=== PATIENT | female | born 1980 | race American Indian/Alaskan Native ===

== ENCOUNTER 2016-10-07 17:33 | Emergency (ER) | payer SELFPAY ==
[2016-10-07] MEDS ORDERED: TYLENOL ONE (18:09)
[2016-10-07] MEDS ORDERED: TYLENOL PO ONE (18:12)
--- NOTE | 2016-10-07 19:48 | Emergency Department Report ---
ED ENT HPI - General Chief complaint: Dental/Oral Stated complaint: TOOTHACHE RT SIDE Source: patient Mode of arrival: Ambulatory Limitations: No Limitations - History of Present Illness Initial comments: 36 year old female presents to ED with right sided jaw swelling. patient states she had a "hole in her tooth" a couple days ago and she woke up this morning with right sided jaw swelling and pain. Patient states she also has had fever. patient denies trouble breathing or trauma to jaw/facial area. Patient is stable , neurologically intact and in no acute distress. MD complaint: tooth pain Location: tooth # (bottom right tooth) 1 - pain at right lower tooth Severity: mild Quality: constant Consistency: constant Improves with: none Worsens with: none Context- Dental: history of dental caries, poor dental care Associated Symptoms: fever, toothache. denies: pain with swallowing, sore throat - Related Data Home Medications Medication Instructions Recorded Confirmed Last Taken traMADol [Ultram] 50 mg PO Q6HR PRN 04/17/16 04/17/16 Unknown Previous Rx's Medication Instructions Recorded Last Taken Type Ibuprofen [Motrin] 800 mg PO Q8H PRN #30 tablet 05/11/14 Unknown Rx Cyclobenzaprine [Flexeril] 10 mg PO TID PRN #20 tablet 04/17/16 Unknown Rx Fluconazole [Diflucan TAB] 100 mg PO QDAY PRN #1 tablet 04/17/16 Unknown Rx Ibuprofen [Motrin] 800 mg PO Q8HR PRN #30 tablet 04/17/16 Unknown Rx Sulfamethoxazole/Trimethoprim 1 each PO BID #10 tablet 04/17/16 Unknown Rx [Bactrim DS TAB] Ketorolac [Toradol] 10 mg PO Q6H PRN #20 tablet 10/07/16 Unknown Rx Sulfamethoxazole/Trimethoprim 1 each PO BID #20 tablet 10/07/16 Unknown Rx [Bactrim DS TAB] Allergies Allergy/AdvReac Type Severity Reaction Status Date / Time No Known Allergies Allergy Unverified 10/07/16 18:12 ED Dental HPI - General Chief complaint: Dental/Oral Stated complaint: TOOTHACHE RT SIDE Source: patient Mode of arrival: Ambulatory Limitations: No Limitations - Related Data Home Medications Medication Instructions Recorded Confirmed Last Taken traMADol [Ultram] 50 mg PO Q6HR PRN 04/17/16 04/17/16 Unknown Previous Rx's Medication Instructions Recorded Last Taken Type Ibuprofen [Motrin] 800 mg PO Q8H PRN #30 tablet 05/11/14 Unknown Rx Cyclobenzaprine [Flexeril] 10 mg PO TID PRN #20 tablet 04/17/16 Unknown Rx Fluconazole [Diflucan TAB] 100 mg PO QDAY PRN #1 tablet 04/17/16 Unknown Rx Ibuprofen [Motrin] 800 mg PO Q8HR PRN #30 tablet 04/17/16 Unknown Rx Sulfamethoxazole/Trimethoprim 1 each PO BID #10 tablet 04/17/16 Unknown Rx [Bactrim DS TAB] Ketorolac [Toradol] 10 mg PO Q6H PRN #20 tablet 10/07/16 Unknown Rx Sulfamethoxazole/Trimethoprim 1 each PO BID #20 tablet 10/07/16 Unknown Rx [Bactrim DS TAB] Allergies Allergy/AdvReac Type Severity Reaction Status Date / Time No Known Allergies Allergy Unverified 10/07/16 18:12 ED Review of Systems ROS: Stated complaint: TOOTHACHE RT SIDE /LWR BACK PAIN Other details as noted in HPI Constitutional: fever. denies: chills Eyes: denies: eye pain, eye discharge, vision change ENT: dental pain. denies: ear pain, throat pain Respiratory: denies: cough, shortness of breath, wheezing Cardiovascular: denies: chest pain, palpitations Endocrine: no symptoms reported Gastrointestinal: denies: abdominal pain, nausea, diarrhea Genitourinary: denies: urgency, dysuria, discharge Musculoskeletal: denies: joint swelling Skin: denies: rash, lesions Neurological: denies: headache, weakness, paresthesias Psychiatric: denies: anxiety, depression Hematological/Lymphatic: denies: easy bleeding, easy bruising ED Past Medical Hx - Past Medical History Previous Medical History?: Yes Hx Headaches / Migraines: Yes Hx Asthma: Yes Additional medical history: SINUSES - Surgical History Past Surgical History?: Yes Additional Surgical History: C SECTION - Social History Smoking Status: Never Smoker - Medications Home Medications: Home Medications Medication Instructions Recorded Confirmed Last Taken Type Ibuprofen [Motrin] 800 mg PO Q8H PRN #30 tablet 05/11/14 Unknown Rx Cyclobenzaprine [Flexeril] 10 mg PO TID PRN #20 tablet 04/17/16 Unknown Rx Fluconazole [Diflucan TAB] 100 mg PO QDAY PRN #1 tablet 04/17/16 Unknown Rx Ibuprofen [Motrin] 800 mg PO Q8HR PRN #30 tablet 04/17/16 Unknown Rx Sulfamethoxazole/Trimethoprim 1 each PO BID #10 tablet 04/17/16 Unknown Rx [Bactrim DS TAB] traMADol [Ultram] 50 mg PO Q6HR PRN 04/17/16 04/17/16 Unknown History Ketorolac [Toradol] 10 mg PO Q6H PRN #20 tablet 10/07/16 Unknown Rx Sulfamethoxazole/Trimethoprim 1 each PO BID #20 tablet 10/07/16 Unknown Rx [Bactrim DS TAB] ED Physical Exam - General Limitations: No Limitations General appearance: alert, in no apparent distress - Head Head exam: Present: atraumatic, normocephalic - Eye Eye exam: Present: normal appearance - ENT ENT exam: Present: normal exam, mucous membranes moist - Expanded ENT Exam Expanded Ear exam: Present: normal external inspection Mouth exam: Present: tongue normal, other (swelling present to right side of jaw ). Absent: drooling, trismus, muffled voice, laceration Teeth exam: Present: dental tenderness # 1 - Dental Tenderness Throat exam: Positive: normal inspection - Neck Neck exam: Present: normal inspection, full ROM. Absent: lymphadenopathy - Respiratory Respiratory exam: Present: normal lung sounds bilaterally. Absent: respiratory distress - Cardiovascular Cardiovascular Exam: Present: regular rate, normal rhythm. Absent: systolic murmur, diastolic murmur, rubs, gallop - GI/Abdominal GI/Abdominal exam: Present: soft, normal bowel sounds. Absent: tenderness - Extremities Exam Extremities exam: Present: normal inspection - Back Exam Back exam: Present: normal inspection - Neurological Exam Neurological exam: Present: alert, oriented X3 - Psychiatric Psychiatric exam: Present: normal affect, normal mood - Skin Skin exam: Present: warm, dry, intact, normal color. Absent: rash ED Course Vital Signs 10/07/16 10/07/16 18:06 20:25 Temperature 101.4 F H 100.8 F H Pulse Rate 90 86 Respiratory 18 18 Rate Blood Pressure 137/94 Blood Pressure 134/92 [Right] O2 Sat by Pulse 100 100 Oximetry ED Medical Decision Making - Lab Data Result diagrams: 10/07/16 20:19 10/07/16 20:19 Vital Signs 10/07/16 10/07/16 18:06 20:25 Temperature 101.4 F H 100.8 F H Pulse Rate 90 86 Respiratory 18 18 Rate Blood Pressure 137/94 Blood Pressure 134/92 [Right] O2 Sat by Pulse 100 100 Oximetry - Radiology Data Radiology results: report reviewed CT facial bones with contrast No definable periostitis or bone abscess. no definitive evidence of osteomyelitis. Right facial swelling with stranding and inflammatory change evident. Deep soft tissue edematous with tracking lymphatic fluid collections without evidence of ring enhancing abscess seen at this time. Moderate diffuse reactive lymphadenitis head neck right greater than left. Short-term followup is advised to ensure lack of potential for development of abscess not seen at this time. - Medical Decision Making 36 year old female presents to ED with right sided jaw swelling. patient has had CT scan of face with contrast that shows no evidence of osteomyelitis or abscess formation. patient has received IV antibiotics here in ED and will be placed on PO antibiotics and understands she must follow up with dentist within 1-2 days. Patient also understands to return to ED if swelling worsens or if she develops trouble breathing or swallowing or if fever is uncontrolled. Patient also understands to alternate tylenol and motrin for fever symptoms. Critical care attestation.: If time is entered above; I have spent that time in minutes in the direct care of this critically ill patient, excluding procedure time. ED Disposition Clinical Impression: Lymphadenitis, acute Disposition: DISCHARGED TO HOME OR SELFCARE Is pt being admited?: No Does the pt Need Aspirin: No Condition: Stable Instructions: Lymphadenopathy (ED) Additional Instructions: Please follow up with dentist or PCP within 1-2 days. Prescriptions: Ketorolac [Toradol] 10 mg PO Q6H PRN #20 tablet PRN Reason: Pain Sulfamethoxazole/Trimethoprim [Bactrim DS TAB] 1 each PO BID #20 tablet Referrals: PRIMARY CARE, [Primary Care Provider] - 24 Hours Forms: Work/School Release Form(ED)
[2016-10-07] MEDS ORDERED: NORCO 5/325 PO ONE (19:49)
[2016-10-07] MEDS ORDERED: TORADOL IV ONE (19:50)
[2016-10-07] MEDS ORDERED: CLEOCIN 900 MG/50 mL 900 MG/50 ML BAG IV ONE (19:50)
[2016-10-07 20:31] VITALS: BP 134/92
[2016-10-07 20:42] LABS: Basophils % (Auto) 0.7 % (0.0-1.8); Eosinophils % (Auto) 0.3 % (0.0-4.3); Hematocrit 35.4 % (30.3-42.9); Hemoglobin 11.6 gm/dl (10.1-14.3); Mean Corpuscular HGB Conc 33 % (30-34); Mean Corpuscular Hemoglobin 30 pg (28-32); Mean Corpuscular Volume 90 fl (79-97); Platelet Count 231 K/mm3 (140-440); Red Blood Count 3.94 M/mm3 (3.65-5.03); Red Cell Distribution Width 14.5 % (13.2-15.2); White Blood Count 9.6 K/mm3 (4.5-11.0)
[2016-10-07 20:51] LABS: Anion Gap 16 mmol/L; Blood Urea Nitrogen 10 mg/dL (7-17); Calcium 8.8 mg/dL (8.4-10.2); Carbon Dioxide 25 mmol/L (22-30); Chloride 98.1 mmol/L (98-107); Glucose 119 mg/dL (65-100); Potassium 3.4 mmol/L (3.6-5.0); Sodium 136 mmol/L (137-145)
[2016-10-07] MEDS ORDERED: NACL ONE (20:58)
--- NOTE | 2016-10-07 22:23 | Cat Scan Report ---
FINAL REPORT PROCEDURE: CT FACIAL BONES W CON TECHNIQUE: Computerized tomography of the facial bones and soft tissues with axial and coronal sections was performed from the cranial aspect of the frontal sinuses to the caudal portion of the mandible following the IV injection of iodinated nonionic contrast. HISTORY: abscess on rt side COMPARISON: No prior studies are available for comparison. FINDINGS: Soft tissue swelling thickening deep tissues of the right pre mandibular area. Ill-defined thickening and fluid right pre mandibular sagittal 20 axial 24 without definable ring-enhancing or rim enhancing abscess seen per se. Thickening swelling along the deep musculature fascia superficial muscle platysma fascia around the right masseter musculature para osseous pre mandibular and pre maxillary areas Extensive of moderate lymphadenopathy measuring mostly in the 1-1.5 centimeter range but with occasional 1.5 to 2.5 centimeters matted deep and superficial spaces throughout the head and neck anterior posterior cervical chain retromandibular submandibular para jugular areas right greater than left with enhancement consistent with moderate lymphadenitis.. Small gas droplets along the right perimandibular area sagittal 20 through 22 pre master muscle No definable periostitis or bone abscess. No definitive evidence of osteomyelitis. Origin of the suspected infection right face is indeterminate. No fluid seen in the retropharyngeal or danger space of the visualized neck. IMPRESSION: Right facial swelling with stranding and inflammatory change evident Deep soft tissue edematous change with tracking lymphatic fluid collections without evidence of ring enhancing abscess seen at this time Moderate diffuse reactive lymphadenitis head neck right greater than left Short-term followup is advised to ensure lack of potential for development of abscess not seen at this time
== END 2016-10-07 23:25 | disposition home or self-care (01) ==
LOC: ED 17:33
DX: L04.9 Acute lymphadenitis, unspecified (principal); G43.909 Migraine, unspecified, not intractable, without status migrainosus; J45.909 Unspecified asthma, uncomplicated
CPT/HCPCS: 36415; 70487; 80048; 84703; 85025; 87040; 96365; 96375; 99284; J1885; Q9967